=== PATIENT | female | born 1995 | race African-American/Black ===

== ENCOUNTER 2016-05-17 18:17 | Emergency (ER) | payer BC ==
[~2016-05-17] VITALS: Ht 157.5 cm; Wt 63.6 kg
[~2016-05-17 18:17] MED LIST: ALLEGRA30 MG PO; MEDROL 4MG DOSPA4 MG PO; NASONEX SPRAY17 GM NS
[2016-05-17 18:41] VITALS: BP 130/78; TEMP 98.1
[2016-05-17] MEDS ORDERED: PROAIR HFA0.09 MG/AC IH (18:44)
[2016-05-17 19:49] LABS: PH 6 (5-8); SQUAMOUS EPITHELIAL None Seen /hpf; URINE APPEARANCE Clear; URINE BACTERIA None Seen /hpf; URINE BILIRUBIN Negative (NEGATIVE); URINE BLOOD 2+ (NEGATIVE); URINE COLOR Straw; URINE GLUCOSE Negative (NEGATIVE); URINE KETONE Negative (NEGATIVE); URINE UROBILINOGEN Negative (NEGATIVE); URINE WBC 0-2 /hpf
[2016-05-17 20:37] VITALS: PULSE 89
[2016-05-17 21:50] LABS: CHLAMYDIA/TRACH by PCR Female Not Detected; NEISSERIA GON by PCR Female Not Detected
== END 2016-05-17 20:38 | disposition home or self-care (01) ==
LOC: COL.ER 18:17
PROVIDERS: Physician Assistant
DX: N89.8 Other specified noninflammatory disorders of vagina (principal)